=== PATIENT | female | born 1955 | race Two or more races ===

== ENCOUNTER → 2022-03-03 | Outpatient (CLI) | payer OTHER, MEDICAID | END | disposition home or self-care (01) | LOC: LAB 09:39 | PROVIDERS: ATTEND Nurse Practitioner Family | DX: Z20.822 Contact with and (suspected) exposure to COVID-19 (principal) | CPT/HCPCS: 36415 ==

== ENCOUNTER → 2022-03-04 | Outpatient (CLI) | payer OTHER, MEDICAID ==
[~2022-03-04] MED LIST: ALBUTEROL SULF 2.5 MG/0.5ML(0.5%) NEB SOLN ONE
== END | disposition home or self-care (01) ==
LOC: RT 08:44
PROVIDERS: ATTEND Internal Medicine Pulmonary Disease
DX: U07.1 COVID-19 (principal); R06.02 Shortness of breath; R05.9 Cough, unspecified
CPT/HCPCS: 94060; 94727; 94729